=== PATIENT | male | born 1950 | race Hispanic/Latino ===

== ENCOUNTER → 2018-11-16 | Day surgery (SDC) | payer MEDICARE ==
[2018-11-09 13:21] LABS: BASOPHILS % 0.3 % (0.0-1.0); EOSINOPHILS # (AUTO) 0.2 (0.0-0.4); EOSINOPHILS % 1.8 % (0.0-6.0); HEMATOCRIT 45.1 % (38.2-49.6); HEMOGLOBIN 15.4 g/dL (14.0-18.0); LYMPHOCYTES # (AUTO) 1.6 (1.0-3.2); LYMPHOCYTES % 16.8 % (18.0-39.1); MEAN CORPUSCULAR HGB CONC 34.1 g/dL (31-35); MEAN CORPUSCULAR VOLUME 90.9 fL (81-99); MONOCYTES # (AUTO) 0.9 (0.2-0.8); MONOCYTES % 8.9 % (4.4-11.3); NEUTROPHILS % 71.9 % (38.7-80.0); PLATELET COUNT 305 x10e3/uL (140-360); RED BLOOD COUNT 4.96 x10e6/uL (4.3-5.7); RED CELL DISTRIBUTION WIDTH 12.5 % (11.7-14.4)
[~2018-11-16] MED LIST: ASPIR 8181 MG PO; ATORVASTATIN CA20 MG PO; CARVEDILOL12.5 MG PO; CETIRIZINE HCL10 MG PO; FENTANYL CITRATE/PF 100MCG/2 ML INJ ONE; FERROUS SULFAT325 MG PO; FUROSEMIDE40 MG PO; IRON PO; LISINOPRIL10 MG PO; MIDAZOLAM HCL 2 MG/2 ML VIAL ONE; NAMENDA10 MG PO; POTASSIUM PO; PROPOFOL IV EMULSION 10 MG/ML 50 ML VIAL ONE; VIT B12 PO
--- OUTSIDE RECORDS SUMMARY | 2018-11-16 09:30 | XMS REPORT ---
Author [facility] Address Unknown Phone Unavailable Care Team Providers Care Dirt Bike Racer Name Role Phone Pedro RICHARD PP Unavailable Problems This patient has no known problems. Allergies, Adverse Reactions, Alerts This patient has no known allergies or adverse reactions. Medications This patient has no known medications. Encounters Start Date/Time End Date/Time Encounter Type Admission Type Attending [facility] Facility Care Department Encounter ID 2017-11-25 06:58:00 2017-11-25 06:58:00 Outpatient [facility] [id number] 2017-06-06 00:00:00 2017-06-06 00:00:00 Outpatient [facility] [id number] 2017-04-12 00:00:00 2017-04-12 00:00:00 Outpatient [facility] [id number] 2017-04-12 00:00:00 2017-04-12 00:00:00 Outpatient [facility] [id number] 2017-04-06 00:00:00 2017-04-06 00:00:00 Outpatient [facility] [id number] 2017-03-30 09:03:03 2017-03-30 09:03:03 Outpatient [facility] [id number] 2017-03-09 14:16:36 2017-03-09 14:16:36 Outpatient [facility] [id number] 2017-03-08 14:23:21 2017-03-08 14:23:21 Outpatient [facility] [id number] 2017-02-28 15:24:24 2017-02-28 15:24:24 Outpatient [facility] [id number]
[2018-11-16 13:00] VITALS: BP 124/61
--- NOTE | 2018-11-16 14:39 | Operative Report ---
DATE OF PROCEDURE: November 16, 2018 REFERRING PHYSICIAN: Dr. Ela Pate PROCEDURE PERFORMED: Esophagogastroduodenoscopy with biopsies. INDICATIONS FOR EGD: Upper abdominal pain and history of heartburn. MEDICATION: Patient was done under MAC. Please see anesthesiologist's note. PROCEDURE: With the patient in the left lateral decubitus position, the flexible fiberoptic Olympus gastroscope was introduced into the esophagus under direct visualization without any difficulty. There was some patchy erythema noted in the distal esophagus. The GE junction was somewhat nodular and that was biopsied. The scope was then advanced with ease into the stomach. Mucosa overlying the antrum and the body revealed some patchy erythema and low-grade to moderate edema, and biopsies were obtained and sent to stain for H. pylori. The pylorus was of normal contour and shape. It was intubated with ease. The scope was advanced all the way to the 2nd portion of the duodenum. Biopsies were obtained from the proximal 2nd portion, as well as the duodenal bulb to rule out sprue. The scope was then withdrawn back into the stomach and retroflexed. The mucosa overlying the fundus and the cardia appeared to be within normal limits. The scope was then straightened out. It was subsequently withdrawn. Patient tolerated the procedure well. IMPRESSION 1. Mild distal esophagitis. 2. Gastroesophageal junction somewhat nodular, biopsied. 3. Gastritis, biopsied. Biopsy sent to stain for Helicobacter pylori. 4. Rule out sprue. PLAN: Follow up histology. Initiate Protonix 40 mg 1 p.o. q.a.m. a.c. Job#: [id number] RI cc:ELA PATE MD
--- NOTE | 2018-11-16 14:42 | Operative Report ---
DATE OF PROCEDURE: November 16, 2018 ADDENDUM: REFERRING PHYSICIAN: Dr. Ela Lovell. NOTE: I will probably have to redictate the whole thing. Cancel the previously dictated note. Job#: [id number] EV
--- NOTE | 2018-11-16 14:48 | Operative Report ---
DATE OF PROCEDURE: November 16, 2018 REFERRING PHYSICIAN: Dr. Ela Pate. PROCEDURE PERFORMED: Esophagogastroduodenoscopy. INDICATIONS FOR ESOPHAGOGASTRODUODENOSCOPY: Upper abdominal pain, history of heartburn. MEDICATION: Patient was done under MAC. Please see anesthesiologist's note. PROCEDURE: With patient in the left lateral decubitus position, the flexible fiberoptic Olympus gastroscope was introduced into the oropharynx under direct visualization without any difficulty. A minute nodule was noted on the left arytenoid. The scope was then advanced with ease into the esophagus, and the mucosa overlying the distal esophagus revealed some patchy areas of erythema. The GE junction was somewhat nodular, and that was biopsied. The scope was then advanced with ease into the stomach. Mucosa overlying the antrum and the body revealed some patchy erythema and mild to moderate edema, and biopsies were obtained and sent to stain for H. pylori. Pylorus appeared to be of normal contour and shape, was intubated with ease, and the scope was advanced all the way to the 2nd portion of the duodenum. The scope was then withdrawn slowly, and biopsies were obtained from the proximal 2nd portion and the duodenal bulb to rule out sprue. The scope was then withdrawn back into the stomach and retroflexed, and mucosa overlying the fundus and the cardia appeared to be within normal limits. As mentioned earlier, biopsies were obtained from the antrum and sent to stain for H. pylori. The scope was subsequently withdrawn. Patient tolerated procedure well. IMPRESSION: 1. Minute nodule left arytenoid. 2. Mild distal esophagitis. 3. Gastroesophageal junction somewhat nodular, biopsied. 4. Gastritis biopsied. Biopsies sent to stain for H. pylori. 5. Rule out sprue. PLAN: Follow up histology. Initiate Protonix 40 mg 1 p.o. q.a.m. a.c. Patient might benefit from an ENT evaluation of the nodule on his arytenoid. Job#: [id number] EV cc:ELA PATE MD
== END | disposition home or self-care (01) ==
LOC: OR 09:28
PROVIDERS: ATTEND Internal Medicine Gastroenterology
DX: K31.7 Polyp of stomach and duodenum (principal); K29.70 Gastritis, unspecified, without bleeding; K20.9 Esophagitis, unspecified; J38.7 Other diseases of larynx; I10 Essential (primary) hypertension; D64.9 Anemia, unspecified; Z91.013 Allergy to seafood; Z01.810 Encounter for preprocedural cardiovascular examination; Z01.812 Encounter for preprocedural laboratory examination; Z79.82 Long term (current) use of aspirin; Z68.38 Body mass index [BMI] 38.0-38.9, adult; Z87.891 Personal history of nicotine dependence
CPT/HCPCS: 36415; 43239; 85025; 93005; J2250; J2704